=== PATIENT | female | born 1990 | race Caucasian/White ===

== ENCOUNTER 2016-11-07 18:58 | Emergency (ER) | payer BC ==
[~2016-11-07 18:58] MED LIST: BIRTH CONTROL PILL PO; CELEXA20 MG PO; PROTONIX20 MG PO
[2017-05-25] MEDS ORDERED: TUMS500 MG PO (12:03)
[2017-05-25] MEDS ORDERED: TOPAMAX25 MG PO (12:03)
[2017-05-25] MEDS ORDERED: IMITREX PO (12:04)
[2017-05-25] MEDS ORDERED: BUTALB-ACETAMI1 EAC4 PO (12:05)
== END 2016-11-09 18:54 | disposition home or self-care (01) ==
LOC: CED 18:58
DX: R42 Dizziness and giddiness (principal)
CPT/HCPCS: 84703; 99282; 99283

== ENCOUNTER → 2017-01-18 | Outpatient (CLI) | payer BC ==
[~2017-01-18] MED LIST changes: +BUTALB-ACETAMI1 EAC4 PO; +IMITREX PO; +TOPAMAX25 MG PO; +TUMS500 MG PO
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
== END | disposition home or self-care (01) ==
LOC: CMRI 10:00
DX: R42 Dizziness and giddiness (principal); M54.2 Cervicalgia
CPT/HCPCS: 70553; A9577

== ENCOUNTER → 2017-03-29 | Outpatient (CLI) | payer BC ==
--- NOTE | ~2017-03-29 | XA198 ---
[facility] A Service of [facility] RADIOLOGY TEXT RESULTS PATIENT: NEO LITTLEJOHN LOCATION: [facility] : 91 UNIT #: [id number] AGE: [address]: Javier Mora II, MD SEX: F ORDER DR: [id number] [facility] [address] [place], [place] [address] [id number] O MR#: [id number] Acc #: [id number] NAME: NEO LITTLEJOHN : 1990 SEX: F STUDY DATE/TIME: 03/29/2017 11:07 UNIT: [facility] ROOM: STUDY DESCRIPTION: XA Spinal Puncture Attending Physician: Javier Mora II., M.D. Ordering Physician: Javier Mora II., M.D. Primary Care Physician: Linda Ramos Aprn MEDICAL IMAGING REPORT This report is preliminary unless electronic signature is present EXAM Fluoroscopically-guided lumbar puncture INDICATION Pseudotumor cerebri. Patient had an MRI which was performed January 18, 2017 which showed a partially empty sella. PROCEDURE The risks, benefits, and alternatives to the procedure were explained to the patient, and signed, informed consent was obtained. Patient was placed prone on the angiographic table and was prepped and draped in the usual sterile fashion. Time-out was performed as per protocol. Skin and subcutaneous tissues were anesthetized with buffered Lidocaine. A 22-gauge spinal needle was advanced into the spinal canal under fluoroscopic guidance. Removal of the inner stylet yielded clear CSF. Opening pressure was 24. I removed approximately 25-26 mL of clear CSF. Closing pressure was 15. Total fluoroscopy time was 1 minute. AK was 94 mGy. IMPRESSION Technically successful fluoroscopically-guided lumbar puncture. As noted above, fluoroscopy was used during the procedure and permanent images were saved. Opening pressure was 24. Closing pressure was 15 after removal of 25-26 mL of clear CSF. Dictated by... Teresita Ash M.D. THIS IS AN ELECTRONICALLY VERIFIED REPORT Teresita Ash M.D. at 03/30/2017 4:58 PM AFF/mjs [facility] A Service of [facility] RADIOLOGY TEXT RESULTS PATIENT: NEO LITTLEJOHN LOCATION: [facility] : 91 UNIT #: [id number] AGE: [address]: Javier Mora II, MD SEX: F ORDER DR: TD: 03/30/2017 13:24 JOB #: [id number] MEDICAL IMAGING REPORT Page 1 of 1 COPY
[2017-03-29 09:48] LABS: HEMATOCRIT 40.6 % (35.0-45.0); HEMOGLOBIN 13.7 gm/dL (12.0-16.0); MEAN CELL VOLUME 92.1 FL (83-96); MEAN CORPUSCULAR HEMOGLOBIN 31.1 PG (28-34); MEAN CORPUSCULAR HGB CONC 33.8 g/dL (30-36); MEAN PLATELET VOLUME 11.6 FL (6.5-11.5); RED BLOOD COUNT 4.42 X10e (3.90-5.30); RED CELL DISTRIBUTION WIDTH 12.3 % (11.0-15.5); WHITE BLOOD COUNT 8.3 X10e3 (4.0-10.5)
[2017-03-29 10:04] LABS: PARTIAL THROMBOPLASTIN TIME 29.2 SECONDS (23.5-31.3); PROTHROMBIN TIME (PATIENT) 11.2 SECONDS (10.0-11.7)
== END | disposition home or self-care (01) ==
LOC: CIVR 08:56
PROVIDERS: Psychiatry & Neurology Neurology
PROC: 009U3ZZ Drainage of Spinal Canal, Percutaneous Approach (ICD-10-PCS; principal; 2017-03-29)
DX: R51 Headache (principal)
CPT/HCPCS: 36415; 77003; 85027; 85610; 85730; C1713

== ENCOUNTER → 2017-05-20 | Outpatient (CLI) | payer BC ==
--- NOTE | ~2017-05-20 | XA198 ---
[facility] A Service of [facility] RADIOLOGY TEXT RESULTS PATIENT: NEO ANGEL LOCATION: [facility] : 91 UNIT #: [id number] AGE: [address]: Javier Mora II, MD SEX: F ORDER DR: [id number] [place] [id number] [facility] [place], [place] [address] [id number] O MR#: [id number] Acc #: [id number] NAME: NEO LITTLEJOHN : 1990 SEX: F STUDY DATE/TIME: 05/20/2017 9:06 UNIT: [facility] ROOM: STUDY DESCRIPTION: XA Spinal Puncture Attending Physician: Javier Mora II., M.D. Referring Physician: Javier Mora II., M.D. Ordering Physician: Javier Mora II., M.D. Primary Care Physician: Linda Ramos Aprn MEDICAL IMAGING REPORT This report is preliminary unless electronic signature is present EXAM Fluoroscopically-guided lumbar puncture INDICATIONS 26-year-old female with history of pseudotumor cerebri. FINDINGS Fluoroscopy time was 1.6 minutes. Reference air kerma is 145 mGy. The risks, benefits, and alternatives of the procedure were discussed with the patient and informed consent was obtained. In the procedure room, a time out was performed confirming correct patient and procedure. All elements of maximum sterile-barrier technique utilized according to guidelines appropriate for the procedure. TECHNIQUE/FINDINGS Skin overlying the lumbar spine was prepped and draped in the usual sterile fashion with Betadine soap. 1% lidocaine utilized to anesthetize the skin and underlying subcutaneous tissues. Next under fluoroscopic guidance, a 20-gauge spinal needle was advanced into the thecal sac at the L3 level. There is return of clear CSF. The opening pressure was 35 cm of water. 30 mL of CSF was collected and discarded. Closing pressure was 17 cm of water. Patient tolerated procedure well without immediate complications. IMPRESSION Technically successful fluoroscopically-guided lumbar puncture. Dictated by... Dion Barrios M.D. [facility] A Service of [facility] RADIOLOGY TEXT RESULTS PATIENT: NEO ANGEL LOCATION: [facility] : 91 UNIT #: [id number] AGE: [address]: Javier Mora II, MD SEX: F ORDER DR: THIS IS AN ELECTRONICALLY VERIFIED REPORT Dion Barrios M.D. at 05/25/2017 11:21 AM HAYLEY/nargis TD: 05/21/2017 08:06 JOB #: [id number] MEDICAL IMAGING REPORT Page 1 of 1 COPY
[2017-05-20 08:59] LABS: HEMATOCRIT 38.7 % (35.0-45.0); HEMOGLOBIN 13.4 gm/dL (12.0-16.0); MEAN CELL VOLUME 92.7 FL (83-96); MEAN CORPUSCULAR HEMOGLOBIN 32.1 PG (28-34); MEAN CORPUSCULAR HGB CONC 34.6 g/dL (30-36); MEAN PLATELET VOLUME 11.5 FL (6.5-11.5); RED BLOOD COUNT 4.17 X10e (3.90-5.30); RED CELL DISTRIBUTION WIDTH 12.4 % (11.0-15.5); WHITE BLOOD COUNT 6.9 X10e3 (4.0-10.5)
[2017-05-20 09:18] LABS: PARTIAL THROMBOPLASTIN TIME 28.6 SECONDS (23.5-31.3); PROTHROMBIN TIME (PATIENT) 10.8 SECONDS (10.0-11.7)
== END | disposition home or self-care (01) ==
LOC: CIVR 08:26
PROVIDERS: Psychiatry & Neurology Neurology
PROC: 009U3ZZ Drainage of Spinal Canal, Percutaneous Approach (ICD-10-PCS; principal; 2017-05-20)
DX: G93.2 Benign intracranial hypertension (principal)
CPT/HCPCS: 36415; 77003; 85027; 85610; 85730; C1713

== ENCOUNTER → 2017-05-25 | Day surgery (SDC) | payer BC ==
--- NOTE | ~2017-05-25 | OR ---
Unit #: [id number] #: [id number] Patient: NEO ANGEL [id number] [address] [place], [place] [address] [id number] O MR#: [id number] NAME: NEO ANGEL ROOM: Date of Procedure: 05/25/2017 Admission Date: 05/25/2017 Surgeon: Jaleel Etienne M.D. : 1990 Attending Physician: Naif Etienne Primary Care Physician: Linda Ramos, [facility] SURGERY CENTER OPERATIVE NOTE PROCEDURE PERFORMED Lumbar epidural blood patch under x-ray guided needle placement. PREOPERATIVE DIAGNOSES Acute postdural puncture headache. INDICATIONS FOR PROCEDURE The patient presents today with a 3 to 5 day history of dural puncture headache like symptoms following a diagnostic lumbar puncture for suspected pseudotumor cerebri. The patient gives a classic symptoms of postural relief with worsening with standing or activity. She denies any symptoms associated with any blood borne bacteremias or viremias. After discussing risks and benefits of proceeding today with a lumbar blood patch, the patient agreed this would be the appropriate course of action. DESCRIPTION OF PROCEDURE She was then taken to the operating room, where she was prepped and draped in a sterile manner. Standard monitors were applied and she refused all forms of sedation. The lumbar epidural space accessed at the L4-L5 level using loss of resistance technique and x-ray guidance. Needle placement was confirmed with injection of 2 mL of Omnipaque. Following successful needle placement confirmation, the patient had 20 mL of autologous blood sterilely obtained from her left hand. Following this, the patient received the injected blood in 5 mL increments into the epidural space. She tolerated this procedure well, although she did have some mild bilateral sciatic paresthesias near the end of the injection. Upon completion of the injection for the next 20 minutes, the patient stated that she had relief of approximately 90% of her headache symptoms. She was discharged home with followup instructions, which include to call this clinic on Tuesday morning, if you felt we could be of further service to her. Dictated by... Shante Jj/trul TD: 05/25/2017 15:34 JOB #: [id number] Unit #: [id number] #: [id number] Patient: STANLEYNEO Brar [facility] OPERATIVE NOTE Page 1 of 1 X Naif Etienne MD PROCEDURE OPERATIVE NOTE
== END | disposition home or self-care (01) ==
LOC: CSUR 11:00 → CCSC 11:49
DX: G97.1 Other reaction to spinal and lumbar puncture (principal); J45.909 Unspecified asthma, uncomplicated; Z79.899 Other long term (current) drug therapy; Z90.49 Acquired absence of other specified parts of digestive tract; Z98.818 Other dental procedure status
CPT/HCPCS: J2250